=== PATIENT | female | born 1985 | race Caucasian/White ===

== ENCOUNTER → 2017-07-02 08:49 | Outpatient (CLI) | payer OTHER ==
[2013-10-05 11:33] VITALS: BMI 28.2
[~2017-07-02 08:49] MED LIST: CYCLOBENZAPRINE10 MG PO; HYDROCODONE-APA1 TAB PO; LEXAPRO10 MG PO; MULTI-DAY VITAM1 TAB PO; NEXIUM40 MG PO; ORTHO TRI-7 DAYSX 3 PO; TUMS500 MG PO
== END | disposition home or self-care (01) ==
LOC: D.ECHO 08:49
DX: R07.9 Chest pain, unspecified (principal); R06.02 Shortness of breath

== ENCOUNTER 2018-10-03 07:12 | Day surgery (SDC) | payer BC ==
[2018-09-30 11:10] LABS: BASOPHILS 0.4 % (0-2); EOSINOPHILS 1.4 % (0-7); HEMATOCRIT 41.8 % (36.0-48.0); HEMOGLOBIN 14.7 g/dL (12-16); IMMATURE GRANULOCYTES 0.2 % (0-5); LYMPHOCYTES 28.2 % (15-50); MCH 33.9 pg (26.0-34.0); MCHC 35.2 g/dL (31.0-37.0); MCV 96.3 fL (80.0-100.0); MEAN PLATELET VOLUME 9.3 fL (7.4-10.4); MONOCYTES 6.1 % (2-11); NEUTROPHILS 63.7 % (40-80); PLATELET COUNT 170 10x3/uL (130-400); RBC 4.34 10x6/uL (4.00-5.40); RDW 12.5 % (11.5-14.5); WBC 5.6 10x3/uL (4.8-10.8)
[2018-09-30 11:35] LABS: CALC OSMOLALITY 278 mosm/kg (275-300); CHLORIDE - SERUM 105 mmol/L (98-107); CREATININE - SERUM 0.6 mg/dL (0.6-1.3); GLUCOSE 100 mg/dL (74-106); POTASSIUM - SERUM 4.4 mmol/L (3.5-5.1); SODIUM 140 mmol/L (136-145); THYROID STIMULATING HORMONE 1.33 uIU/mL (0.36-3.74); UREA NITROGEN 13 mg/dL (7-18); eGFR NON AFRICAN AMERICAN > 90 mL/min (90-120)
[~2018-10-03] VITALS: Ht 167.6 cm; Wt 105.0 kg
[2018-10-03] VITALS (11 sets, daily range): BP systolic 116–147; BP diastolic 70–90; Ht 167.6 cm; Wt 105.0 kg
[~2018-10-03 07:12] MED LIST changes: +ASCORBIC ACID500 MG PO; +NATURE THROI PO; +SELENIUM PO
[2018-10-03 07:38] LABS: HCG URINE NEGATIVE (NEGATIVE)
--- NOTE | 2018-10-03 14:25 | NUR ---
DOVE CATHETER REMOVED, TIP INTACT. PT TAKING IN ICE CHIPS. DENIES ANY ADDITIONAL NEEDS. CALL LIGHT IN REACH.
--- NOTE | 2018-10-03 17:49 | NUR ---
pt up ambulating in room. has had some nausea. zofran has helped.
--- NOTE | 2018-10-03 19:00 | NUR ---
BEDSIDE REPORT AND SHIFT ASSESSMENT COMPLETE. PT C/O PAIN 09/24 BUT DOES NOT WANT ORDERED PAIN MEDS, SAYS THEY MAKE HER SICK TO HER STOMACH. WILL NOTIFY .
--- NOTE | 2018-10-03 19:59 | NUR ---
PT ASKING FOR DIFFERENT PAIN MEDICATIONS AND WORRIED ABOUT UNRINE OUTPUT. CALLED DR LUNDBERG. NEW ORDERS RECEIVED FOR 1L BOLUS, CHANGE OF PAIN MEDICATION AND ADMIT FOR OBS
--- NOTE | 2018-10-03 21:00 | NUR ---
PT REQUESTING HOME MEDS, PAGED.
--- NOTE | 2018-10-03 21:15 | NUR ---
DR JAYLEN FARR, NEW ORDERS RECEIVED. PT AMBULATED AND USED BEDSIDE COMODE. UOP 275 ML, BLOODY AND CONCENTRATED.
--- NOTE | 2018-10-03 21:30 | NUR ---
R HAND PIV INFILTRATED, RESITED TO R AC.
--- NOTE | 2018-10-03 21:44 | NUR ---
SPOKE WITH DR YORK, NEW ORDERS RECEIVED. MEDS GIVEN PER MAR. WILL CONTINUE TO MONITOR.
[2018-10-03 22:03] LABS: CALC OSMOLALITY 273 mosm/kg (275-300); CALCIUM 8.8 mg/dL (8.5-10.1); CARBON DIOXIDE 24.1 mmol/L (21.0-32.0); CHLORIDE - SERUM 103 mmol/L (98-107); CREATININE - SERUM 0.7 mg/dL (0.6-1.3); GLUCOSE 125 mg/dL (74-106); POTASSIUM - SERUM 4.2 mmol/L (3.5-5.1); SODIUM 137 mmol/L (136-145); UREA NITROGEN 9 mg/dL (7-18); eGFR NON AFRICAN AMERICAN > 90 mL/min (90-120)
--- NOTE | 2018-10-03 23:00 | NUR ---
800 ML UOP EMPTIED FROM BEDSIDE COMMODE. NO BLOOD NOTED.
[2018-10-04] VITALS: BP 107/70
[2018-10-04 01:00] VITALS: BP 101/63
--- NOTE | 2018-10-04 01:00 | NUR ---
PT SLEEPING. DENIES NEEDS AT THIS TIME. VSS, WILL CONTINUE TO MONITOR.
[2018-10-04 02:00] VITALS: BP 102/59
--- NOTE | 2018-10-04 03:00 | NUR ---
PT AMBULATING AROUND UNIT. DENIES ANY NEEDS AT THIS TIME.
--- NOTE | 2018-10-04 05:00 | NUR ---
PT SLEEPING. WILL MONITOR.
--- NOTE | 2018-10-04 06:00 | NUR ---
PT REQUESTING HOME MEDS, WILL PASS ALONG IN REPORT TO NOTIFY MD WHEN THEY ROUND IN THE AM.
[2018-10-04 07:00] VITALS: BP 105/63
--- NOTE | 2018-10-04 07:00 | NUR ---
PT REPORT RECEIVED FROM PSYCHOLOGICAL ANTHROPOLOGIST NURSE. WILL CONTINUE TO MONITOR
--- NOTE | 2018-10-04 09:15 | NUR ---
PT IV REMOVED. CATHETER INTACT. PT DISCHARGE IMMINENT.
--- NOTE | 2018-10-14 07:59 | OP ---
PATIENT NAME: JOHN CRONIN MEDICAL RECORD: [id number] :83 LOCATION:D.OPS ADMISSION DATE: SURGEON: DAVID LUNDBERG MD DATE OF OPERATION: 10/03/2018 PREOPERATIVE DIAGNOSIS: 1. Dysfunctional uterine bleeding. 2. Dysmenorrhea. 3. Pelvic mass. POSTOPERATIVE DIAGNOSES: 1. Dysfunctional uterine bleeding. 2. Dysmenorrhea. 3. Left ovarian cyst. PROCEDURES: 1. Diagnostic laparoscopy. 2. Total laparoscopic hysterectomy. 3. Bilateral salpingectomy. 4. Right oophorectomy. COSURGEON: David Lundberg MD/Eyad ANESTHESIOLOGIST: Dr. Leon. ANESTHETIC: General. FINDINGS: Uterus is enlarged and boggy. Both tubes were unremarkable. The right ovary has approximately 5 cm cyst. It contained what appears to be straw-colored to clear fluid. SPECIMENS: 1. Uterus with cervix. 2. Bilateral tubes. 3. Right ovary with mass. SPECIMEN DISPOSITION: All specimens to pathology. ESTIMATED BLOOD LOSS: Going to be less than or equal to 125 cc. FLUIDS: 1800 cc lactated Ringer's. URINE OUTPUT: 300 cc of clear urine. COMPLICATIONS: None. DRAINS: Abreu to gravity. INDICATIONS: The patient is a 33-year-old female with a history of dysfunctional uterine bleeding and dysmenorrhea. During workup, the patient is also discovered to have a mass in the right adnexa. The patient is consented for a laparoscopic hysterectomy with bilateral salpingectomy and removal of right cyst and/or ovary. DESCRIPTION OF PROCEDURE: After informed consent was assured, the patient was OPERATIVE REPORT [id number] JOHN CRONIN taken to the operating room, anesthetic was obtained without difficulty. The patient was now prepped and draped after being placed in stirrups. A uterine manipulator was placed and attention was directed to the abdomen. An incision was made in the infraumbilical trocar site and the strip of the primary trocar was placed. Pneumoperitoneum was developed and accessory ports were placed in the right and left lower quadrants. Through the left hand side a grasper was inserted and the right tube and ovary was elevated. The above findings were encountered. The right ovary and tube was now from its attachments to the infundibulopelvic ligament with a Thunderbeat coagulation cutter. This tissue was compressed, coagulated, and . Dissection was carried out underneath the right tube and the tube was from the uterine specimen. The dissection continues now over the round ligament and the anterior leaf of the broad ligament was now opened and the bladder flap developed. The posterior leaf was opened and the vessels of the right side identified compressed coagulated. Attention was now directed to the left side. From the right, grasper was inserted and the left tube was elevated. The tube was removed from its attachments to the adnexa with a coagulation cutter. After compression, coagulation and separation of the tube from its attachments and dissection was carried over the round ligament and the anterior leaf of the broad ligament was opened. Dissection was continued down to the bladder flap, which was now fully developed. The posterior leaf was opened and the vessels of the left side, compressed, coagulated, and at the level of the internal os. Using both the Thunderbeat and monopolar cautery, the cervix was now removed from its attachments to the vaginal cuff. Once this had been removed, the uterus and cervix along with right ovary and mass was placed into the vaginal vault. These specimens are removed and passed off the field. Vaginal vault was now closed in an anterior and posterior fashion. Once the cuff has been closed, attention was now directed back to the abdomen where the pneumoperitoneum was reestablished and inspection revealed adequate hemostasis. For assured hemostasis, Ulisses was placed across the top of the vaginal cuff. The sponge, lap, and needle counts were correct times 2. The trocars were removed under direct visualization as the pneumoperitoneum was released. All sites were closed with a subcuticular stitch and Dermabond. TRANSINT:[id number] Voice Confirmation ID: [id number] DOCUMENT ID: [id number] DAVID LUNDBERG MD at [id number] CC: [id number] DICTATION DATE: 10/13/18 1849 FLY FRAME TENDER: 10/13/18 2357 [facility] 10/04/18 [id number] [place] [address]
== END 2018-10-04 09:58 | disposition home or self-care (01) ==
LOC: D.OPS 07:12 → D.PAN 08:45 → D.OPS 08:45 → D.ICU 13:41 → D.OPS 10-04 09:58
PROVIDERS: Student in an Organized Health Care Education/Training Program; ATTEND Obstetrics & Gynecology
DX: N93.8 Other specified abnormal uterine and vaginal bleeding (principal); N94.6 Dysmenorrhea, unspecified; N83.202 Unspecified ovarian cyst, left side; D25.2 Subserosal leiomyoma of uterus; D27.0 Benign neoplasm of right ovary; Z01.812 Encounter for preprocedural laboratory examination

== ENCOUNTER 2018-10-10 00:03 | Emergency (ER) | payer BC ==
[~2018-10-10] VITALS: Ht 167.6 cm; Wt 104.5 kg
[2018-10-10 00:08] VITALS: Ht 167.6 cm; Wt 104.5 kg
[2018-10-10] MEDS ORDERED: ASPIRIN81 MG (00:10)
[2018-10-10 00:49] LABS: BASOPHILS 0.1 % (0-2); EOSINOPHILS 1.8 % (0-7); HEMATOCRIT 38.1 % (36.0-48.0); HEMOGLOBIN 13.4 g/dL (12-16); IMMATURE GRANULOCYTES 0.3 % (0-5); LYMPHOCYTES 19.6 % (15-50); MCH 33.7 pg (26.0-34.0); MCHC 35.2 g/dL (31.0-37.0); MCV 95.7 fL (80.0-100.0); MEAN PLATELET VOLUME 9.2 fL (7.4-10.4); MONOCYTES 7.5 % (2-11); NEUTROPHILS 70.7 % (40-80); PLATELET COUNT 164 10x3/uL (130-400); RBC 3.98 10x6/uL (4.00-5.40); RDW 12.3 % (11.5-14.5)
[2018-10-10 00:58] LABS: HCG SERUM NEGATIVE (NEGATIVE)
[2018-10-10 00:59] LABS: INR 1.08 (0.85-1.17); PROTIME 13.5 SECONDS (11.6-15.0)
[2018-10-10 01:06] LABS: ALBUMIN 3.2 g/dL (3.4-5.0); ALKALINE PHOSPHATASE 64 U/L (46-116); ALT (SGPT) 32 U/L (10-68); BILIRUBIN - TOTAL 0.34 mg/dL (0.2-1.3); CALC OSMOLALITY 278 mosm/kg (275-300); CALCIUM 8.7 mg/dL (8.5-10.1); CARBON DIOXIDE 30.2 mmol/L (21.0-32.0); CHLORIDE - SERUM 104 mmol/L (98-107); CREATININE - SERUM 0.7 mg/dL (0.6-1.3); GLUCOSE 112 mg/dL (74-106); POTASSIUM - SERUM 3.7 mmol/L (3.5-5.1); PROTEIN - SERUM 6.9 g/dL (6.4-8.2); SODIUM 140 mmol/L (136-145); UREA NITROGEN 9 mg/dL (7-18); eGFR NON AFRICAN AMERICAN > 90 mL/min (90-120)
[2018-10-10 03:15] LABS: APPEARANCE HAZY (CLEAR); BILIRUBIN NEGATIVE (NEGATIVE); COLOR PINK (YELLOW); GLUCOSE NEGATIVE (NEGATIVE); KETONE NEGATIVE (NEGATIVE); NITRITE NEGATIVE (NEGATIVE); PROTEIN NEGATIVE (NEGATIVE); RED CELLS - URINE >50 /hpf (0-5); UROBILINOGEN NORMAL (NORMAL)
[2018-10-10 03:35] VITALS: BP 134/78
== END 2018-10-10 03:35 | disposition home or self-care (01) ==
LOC: D.ER 00:03
PROVIDERS: Family Medicine
DX: N99.820 Postprocedural hemorrhage of a genitourinary system organ or structure following a genitourinary system procedure (principal)